=== PATIENT | male | born 1970 | race Caucasian/White ===

== ENCOUNTER 2017-10-12 17:21 | Emergency (ER) | payer OTHER ==
[2017-10-12 17:28] VITALS: BP 105/69
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
[2017-10-12] MEDS ORDERED: OXYCODONE/APAP 5/325 TAB PO ONE (18:52)
[2017-10-12] MEDS ORDERED: HYDROCODONE/APAP 5/325 TAB ONE (18:54)
[2017-10-12] MEDS ORDERED: HYDROCODONE/APAP 5/325 TAB PO ONE (18:56)
== END 2017-10-12 19:02 | disposition home or self-care (01) ==
DX: S42.021A Displaced fracture of shaft of right clavicle, initial encounter for closed fracture (principal); V86.99XA Unspecified occupant of other special all-terrain or other off-road motor vehicle injured in nontraffic accident, initial encounter
CPT/HCPCS: A4565